=== PATIENT | female | born 2000 | race Caucasian/White ===

== ENCOUNTER → 2018-08-01 15:52 | Outpatient (CLI) | payer OTHER, SELFPAY ==
[2018-08-01 20:31] LABS: Alanine Aminotransferase 21 IU/L (9-52); Albumin 4.1 g/dL (3.5-5.0); Albumin Globulin Ratio 1.7 (1.0-2.8); Alkaline Phosphatase 67 U/L (38-126); Aspartate Aminotransferase 17 IU/L (14-36); Bilirubin Total 0.7 mg/dL (0.2-1.3); Bilirubin Unconjugated 0.5 mg/dL (0.0-1.1); Cholesterol 100 mg/dL (140-199); Globulin 2.4 g/dL (1.7-4.1); HDL Cholesterol 61 mg/dL (40-60); HEMOLYSIS < 15 (0-50); LDL Cholesterol Calculated 20 mg/dL (<100); Total Protein 6.5 g/dL (6.3-8.2); Triglycerides 95 mg/dL (35-150)
[2018-08-01 20:45] LABS: HCG Quantitative /Beta subunit < 2.39 mIU/mL
== END ==
PROVIDERS: PCP Nurse Practitioner Family; Visit Provider Physician Assistant
DX: L70.0 Acne vulgaris (principal)
CPT/HCPCS: 36415; 80061; 80076; 84702

== ENCOUNTER → 2018-09-04 16:52 | Outpatient (CLI) | payer OTHER, SELFPAY ==
[2018-09-04 18:57] LABS: Alanine Aminotransferase 20 IU/L (9-52); Albumin 4.2 g/dL (3.5-5.0); Albumin Globulin Ratio 1.5 (1.0-2.8); Alkaline Phosphatase 76 U/L (38-126); Aspartate Aminotransferase 22 IU/L (14-36); Bilirubin Total 0.4 mg/dL (0.2-1.3); Bilirubin Unconjugated 0.3 mg/dL (0.0-1.1); Cholesterol 117 mg/dL (140-199); Globulin 2.8 g/dL (1.7-4.1); HDL Cholesterol 54 mg/dL (40-60); HEMOLYSIS < 15 (0-50); LDL Cholesterol Calculated 36 mg/dL (<100); Triglycerides 134 mg/dL (35-150)
[2018-09-04 19:07] LABS: HCG Quantitative /Beta subunit < 2.39 mIU/mL
== END ==
PROVIDERS: PCP Nurse Practitioner Family; Visit Provider Physician Assistant
DX: L70.0 Acne vulgaris (principal)
CPT/HCPCS: 36415; 80061; 80076; 84702

== ENCOUNTER → 2018-10-10 16:39 | Outpatient (CLI) | payer OTHER, SELFPAY ==
[2018-10-10 17:51] LABS: Alanine Aminotransferase 13 IU/L (9-52); Albumin 4.2 g/dL (3.5-5.0); Albumin Globulin Ratio 1.6 (1.0-2.8); Alkaline Phosphatase 60 U/L (38-126); Aspartate Aminotransferase 22 IU/L (14-36); Bilirubin Total 0.6 mg/dL (0.2-1.3); Bilirubin Unconjugated 0.6 mg/dL (0.0-1.1); Cholesterol 108 mg/dL (140-199); Globulin 2.6 g/dL (1.7-4.1); HDL Cholesterol 73 mg/dL (40-60); HEMOLYSIS < 15 (0-50); LDL Cholesterol Calculated 14 mg/dL (<100); Total Protein 6.8 g/dL (6.3-8.2); Triglycerides 104 mg/dL (35-150)
[2018-10-10 18:08] LABS: HCG Quantitative /Beta subunit < 2.39 mIU/mL
== END ==
PROVIDERS: PCP Nurse Practitioner Family; Visit Provider Physician Assistant
DX: L70.0 Acne vulgaris (principal)
CPT/HCPCS: 36415; 80061; 80076; 84702

== ENCOUNTER → 2018-11-17 08:43 | Outpatient (CLI) | payer OTHER, SELFPAY ==
[2018-11-17 09:47] LABS: Alanine Aminotransferase 9 IU/L (9-52); Albumin Globulin Ratio 1.5 (1.0-2.8); Alkaline Phosphatase 53 U/L (38-126); Aspartate Aminotransferase 19 IU/L (14-36); Bilirubin Total 0.5 mg/dL (0.2-1.3); Bilirubin Unconjugated 0.3 mg/dL (0.0-1.1); Cholesterol 109 mg/dL (140-199); Globulin 2.7 g/dL (1.7-4.1); HDL Cholesterol 52 mg/dL (40-60); HEMOLYSIS < 15 (0-50); LDL Cholesterol Calculated 25 mg/dL (<100); Total Protein 6.7 g/dL (6.3-8.2); Triglycerides 161 mg/dL (35-150)
[2018-11-17 10:04] LABS: HCG Quantitative /Beta subunit < 2.39 mIU/mL
== END ==
PROVIDERS: PCP Nurse Practitioner Family; Visit Provider Physician Assistant
DX: L70.0 Acne vulgaris (principal)
CPT/HCPCS: 36415; 80061; 80076; 84702

== ENCOUNTER → 2018-12-29 14:58 | Outpatient (CLI) | payer OTHER, SELFPAY ==
[2018-12-29 16:28] LABS: Alanine Aminotransferase 16 IU/L (9-52); Albumin 4.1 g/dL (3.5-5.0); Albumin Globulin Ratio 1.6 (1.0-2.8); Alkaline Phosphatase 54 U/L (38-126); Aspartate Aminotransferase 20 IU/L (14-36); Bilirubin Total 0.5 mg/dL (0.2-1.3); Bilirubin Unconjugated 0.4 mg/dL (0.0-1.1); Cholesterol 112 mg/dL (140-199); Globulin 2.5 g/dL (1.7-4.1); HDL Cholesterol 69 mg/dL (40-60); HEMOLYSIS < 15 (0-50); LDL Cholesterol Calculated 23 mg/dL (<100); Total Protein 6.6 g/dL (6.3-8.2); Triglycerides 100 mg/dL (35-150)
[2018-12-29 16:43] LABS: HCG Quantitative /Beta subunit < 2.39 mIU/mL
== END ==
PROVIDERS: PCP Nurse Practitioner Family; Visit Provider Physician Assistant
DX: L70.0 Acne vulgaris (principal)
CPT/HCPCS: 36415; 80061; 80076; 84702

== ENCOUNTER → 2019-02-01 16:31 | Outpatient (CLI) | payer OTHER, SELFPAY ==
[2019-02-01 17:42] LABS: Albumin 4.3 g/dL (3.5-5.0); Albumin Globulin Ratio 1.8 (1.0-2.8); Alkaline Phosphatase 53 U/L (38-126); Aspartate Aminotransferase 23 IU/L (14-36); Bilirubin Total 0.6 mg/dL (0.2-1.3); Bilirubin Unconjugated 0.4 mg/dL (0.0-1.1); Cholesterol 116 mg/dL (140-199); Globulin 2.4 g/dL (1.7-4.1); HDL Cholesterol 57 mg/dL (40-60); HEMOLYSIS < 15 (0-50); LDL Cholesterol Calculated 45 mg/dL (<100); Total Protein 6.7 g/dL (6.3-8.2); Triglycerides 70 mg/dL (35-150)
[2019-02-01 17:59] LABS: HCG Quantitative /Beta subunit < 2.39 mIU/mL
[2019-02-01 18:20] LABS: Alanine Aminotransferase 15 IU/L (9-52)
== END ==
PROVIDERS: PCP Nurse Practitioner Family; Visit Provider Physician Assistant
DX: L70.0 Acne vulgaris (principal)
CPT/HCPCS: 36415; 80061; 80076; 84702

== ENCOUNTER → 2019-03-06 16:07 | Outpatient (CLI) | payer OTHER, SELFPAY ==
[2019-03-06 17:45] LABS: Alanine Aminotransferase 20 IU/L (<35); Albumin 4.2 g/dL (3.5-5.0); Albumin Globulin Ratio 1.7 (1.0-2.8); Alkaline Phosphatase 98 U/L (38-126); Aspartate Aminotransferase 30 IU/L (14-36); Bilirubin Total 0.5 mg/dL (0.2-1.3); Bilirubin Unconjugated 0.2 mg/dL (0.0-1.1); Cholesterol 101 mg/dL (140-199); Globulin 2.5 g/dL (1.7-4.1); HDL Cholesterol 43 mg/dL (40-60); HEMOLYSIS < 15 (0-50); LDL Cholesterol Calculated 46 mg/dL (<100); Total Protein 6.7 g/dL (6.3-8.2); Triglycerides 62 mg/dL (35-150)
[2019-03-06 17:59] LABS: HCG Quantitative /Beta subunit < 2.39 mIU/mL
== END ==
PROVIDERS: PCP Nurse Practitioner Family; Visit Provider Physician Assistant
DX: L70.0 Acne vulgaris (principal)
CPT/HCPCS: 36415; 80061; 80076; 84702